=== PATIENT | male | born 1955 | race African-American/Black ===

== ENCOUNTER → 2016-07-23 | Outpatient (CLI) | payer MEDICARE, OTHER ==
[2016-07-23 09:53] LABS: HEMATOCRIT 46.3 % (37.9-51.0); HEMOGLOBIN 15.9 g/dL (13.5-17.0); HGB HCT DIFFERENCE 1.4; MEAN CORPUSCULAR HEMOGLOBIN 33.5 pg (27.0-33.4); MEAN CORPUSCULAR HGB CONC 34.4 g/dL (32.0-36.0); MEAN CORPUSCULAR VOLUME 98 fl (80-97); RED BLOOD COUNT 4.74 10^6/uL (4.35-5.55); RED CELL DISTRIBUTION WIDTH 13.4 % (11.5-14.0); WHITE BLOOD COUNT 6.8 10^3/uL (4.0-10.5)
[2016-07-23 10:05] LABS: ALANINE AMINOTRANSFERASE 52 U/L (21-72); ALBUMIN 4.5 g/dL (3.5-5.0); ALKALINE PHOSPHATASE 47 U/L (38-126); ANION GAP 14 (5-19); ASPARTATE AMINO TRANSFERASE 30 U/L (17-59); BILIRUBIN,TOTAL 0.4 mg/dL (0.2-1.3); BLOOD UREA NITROGEN 17 mg/dL (7-20); CALCIUM 10.2 mg/dL (8.4-10.2); CARBON DIOXIDE 31 mmol/L (22-30); CHLORIDE 99 mmol/L (98-107); CHOLESTEROL 196.09 mg/dL (0-200); CREATININE RESULT 0.99 mg/dL (0.52-1.25); Direct HDL 40 mg/dL (>40); GLUCOSE 101 mg/dL (75-110); POTASSIUM 4.4 mmol/L (3.6-5.0); SODIUM 143.9 mmol/L (137-145); TOTAL PROTEIN 7.7 g/dL (6.3-8.2); TRIGLYCERIDES 201 mg/dL (<150); URIC ACID 8.5 mg/dL (3.5-8.5)
[2016-07-23 10:18] LABS: DIRECT LDL 128 mg/dL (<100)
[2016-07-23 10:21] LABS: VLDL CHOLESTEROL 40.2 mg/dL (10-31)
[2016-07-23 10:30] LABS: BASOPHILS % (MANUAL) 0 % (0-2); EOSINOPHILS % (MANUAL) 4 % (0-6); LYMPHOCYTES % (MANUAL) 43 % (13-45); TOTAL CELLS COUNTED 100
[2016-07-23 10:31] LABS: TOXIC GRANULATION SLIGHT
[2016-07-23 10:32] LABS: RBC MORPHOLOGY COMMENT NORMO-CYTIC/CHROMIC
== END ==
LOC: OD 08:24
PROVIDERS: ATTEND Family Medicine
DX: E78.5 Hyperlipidemia, unspecified (principal); Z79.899 Other long term (current) drug therapy; R73.9 Hyperglycemia, unspecified; M10.9 Gout, unspecified
CPT/HCPCS: 36415; 80048; 80061; 80076; 83036; 84550; 85025

== ENCOUNTER → 2016-10-21 | Outpatient (CLI) | payer MEDICARE, OTHER ==
[2016-10-21 11:20] LABS: ALANINE AMINOTRANSFERASE 45 U/L (21-72); ALBUMIN 4.8 g/dL (3.5-5.0); ALKALINE PHOSPHATASE 49 U/L (38-126); ASPARTATE AMINO TRANSFERASE 30 U/L (17-59); BILIRUBIN,DIRECT 0.3 mg/dL (0.0-0.4); BILIRUBIN,TOTAL 0.6 mg/dL (0.2-1.3); CHOLESTEROL 196.15 mg/dL (0-200); Direct HDL 45 mg/dL (>40); TOTAL PROTEIN 7.9 g/dL (6.3-8.2); TRIGLYCERIDES 228 mg/dL (<150)
[2016-10-21 11:31] LABS: DIRECT LDL 110 mg/dL (<100)
[2016-10-21 11:34] LABS: VLDL CHOLESTEROL 45.6 mg/dL (10-31)
== END ==
LOC: OD 09:27
PROVIDERS: ATTEND Family Medicine
DX: E78.5 Hyperlipidemia, unspecified (principal)
CPT/HCPCS: 36415; 80061; 80076

== ENCOUNTER → 2017-01-22 | Outpatient (CLI) | payer MEDICARE, OTHER ==
[2017-01-22 09:27] LABS: HEMATOCRIT 46.6 % (37.9-51.0); HEMOGLOBIN 15.2 g/dL (13.5-17.0); RED BLOOD COUNT 4.66 10^6/uL (4.35-5.55); WHITE BLOOD COUNT 6.4 10^3/uL (4.0-10.5)
[2017-01-22 09:28] LABS: MEAN CORPUSCULAR HEMOGLOBIN 32.7 pg (27.0-33.4); MEAN CORPUSCULAR HGB CONC 32.7 g/dL (32.0-36.0); MEAN CORPUSCULAR VOLUME 100 fl (80-97); RED CELL DISTRIBUTION WIDTH 13.1 % (11.5-14.0)
[2017-01-22 09:42] LABS: BASOPHILS % (MANUAL) 0 % (0-2); EOSINOPHILS % (MANUAL) 3 % (0-6); LYMPHOCYTES % (MANUAL) 35 % (13-45); PLATELET CLUMPS PRESENT; TOTAL CELLS COUNTED 100
[2017-01-22 09:43] LABS: ALANINE AMINOTRANSFERASE 42 U/L (21-72); ALBUMIN 4.8 g/dL (3.5-5.0); ALKALINE PHOSPHATASE 49 U/L (38-126); ANION GAP 12 (5-19); ASPARTATE AMINO TRANSFERASE 25 U/L (17-59); BILIRUBIN,DIRECT 0.4 mg/dL (0.0-0.4); BILIRUBIN,TOTAL 0.6 mg/dL (0.2-1.3); BLOOD UREA NITROGEN 13 mg/dL (7-20); CALCIUM 10.1 mg/dL (8.4-10.2); CARBON DIOXIDE 30 mmol/L (22-30); CHLORIDE 100 mmol/L (98-107); CHOLESTEROL 165.45 mg/dL (0-200); CREATININE RESULT 0.94 mg/dL (0.52-1.25); Direct HDL 44 mg/dL (>40); GLUCOSE 108 mg/dL (75-110); POTASSIUM 4.5 mmol/L (3.6-5.0); SODIUM 142.1 mmol/L (137-145); TOTAL PROTEIN 8.3 g/dL (6.3-8.2); TRIGLYCERIDES 156 mg/dL (<150)
[2017-01-22 09:44] LABS: POLYCHROMASIA SLIGHT
[2017-01-22 09:45] LABS: TARGET CELLS SLIGHT
[2017-01-22 09:55] LABS: DIRECT LDL 101 mg/dL (<100)
[2017-01-22 10:15] LABS: VLDL CHOLESTEROL 31.2 mg/dL (10-31)
== END ==
LOC: OD 08:05
PROVIDERS: ATTEND Family Medicine
DX: E78.5 Hyperlipidemia, unspecified (principal); Z79.899 Other long term (current) drug therapy; N40.1 Benign prostatic hyperplasia with lower urinary tract symptoms; R73.9 Hyperglycemia, unspecified
CPT/HCPCS: 36415; 80048; 80061; 80076; 83036; 84153; 85025

== ENCOUNTER → 2017-09-30 | Outpatient (CLI) | payer MEDICARE, OTHER ==
[2017-09-30 09:13] LABS: ABSOLUTE BASOPHILS # (AUTO) 0.1 10^3/uL (0.0-0.2); ABSOLUTE EOSINOPHILS # (AUTO) 0.2 10^3/uL (0.0-0.6); ABSOLUTE LYMPHOCYTES (AUTO) 4.1 10^3/uL (0.5-4.7); ABSOLUTE MONOCYTES (AUTO) 0.5 10^3/uL (0.1-1.4); ABSOLUTE NEUT (AUTO) 2.3 10^3/uL (1.7-8.2); BASOPHILS % (AUTO) 1.1 % (0-2); EOSINOPHILS % (AUTO) 3.5 % (0-6); HEMATOCRIT 45.9 % (37.9-51.0); HEMOGLOBIN 15.5 g/dL (13.5-17.0); LYMPHOCYTES % (AUTO) 56.9 % (13-45); MEAN CORPUSCULAR HEMOGLOBIN 32.8 pg (27.0-33.4); MEAN CORPUSCULAR HGB CONC 33.8 g/dL (32.0-36.0); MEAN CORPUSCULAR VOLUME 97 fl (80-97); MONOCYTES % (AUTO) 6.8 % (3-13); PLATELET COUNT 224 10^3/uL (150-450); RED BLOOD COUNT 4.73 10^6/uL (4.35-5.55); RED CELL DISTRIBUTION WIDTH 13.5 % (11.5-14.0); SEGMENTED NEUTROPHILS % (AUTO) 31.7 % (42-78); TOTAL CELLS COUNTED % (AUTO) 100 %; WHITE BLOOD COUNT 7.2 10^3/uL (4.0-10.5)
[2017-09-30 09:33] LABS: ALANINE AMINOTRANSFERASE 45 U/L (21-72); ALBUMIN 4.7 g/dL (3.5-5.0); ALKALINE PHOSPHATASE 44 U/L (38-126); ANION GAP 11 (5-19); ASPARTATE AMINO TRANSFERASE 25 U/L (17-59); BILIRUBIN,DIRECT 0.4 mg/dL (0.0-0.4); BILIRUBIN,TOTAL 0.6 mg/dL (0.2-1.3); BLOOD UREA NITROGEN 13 mg/dL (7-20); CALCIUM 10.4 mg/dL (8.4-10.2); CARBON DIOXIDE 31 mmol/L (22-30); CHLORIDE 103 mmol/L (98-107); CHOLESTEROL 215.42 mg/dL (0-200); GLUCOSE 97 mg/dL (75-110); POTASSIUM 4.5 mmol/L (3.6-5.0); SODIUM 145.4 mmol/L (137-145); TOTAL PROTEIN 7.9 g/dL (6.3-8.2); TRIGLYCERIDES 240 mg/dL (<150); URIC ACID 7.7 mg/dL (3.5-8.5)
[2017-09-30 09:44] LABS: DIRECT LDL 147 mg/dL (<100)
== END ==
LOC: OD 08:08
PROVIDERS: ATTEND Family Medicine
DX: E78.5 Hyperlipidemia, unspecified (principal); R73.9 Hyperglycemia, unspecified; M10.9 Gout, unspecified; Z79.899 Other long term (current) drug therapy
CPT/HCPCS: 36415; 80053; 80061; 83036; 84443; 84550; 85025

== ENCOUNTER → 2017-10-07 | Outpatient (CLI) | payer MEDICARE, OTHER ==
--- NOTE | 2017-10-07 10:48 | RADIOLOGY REPORT (SQ) ---
EXAM DESCRIPTION: CAROTID DOPPLER COMPLETED DATE/TIME: 10/07/2017 9:38 am REASON FOR STUDY: AMAUROSIS FUGAX G45.3 AMAUROSIS FUGAX I73.9 PERIPHERAL VASCULAR DISEASE, UNSPECI FIED COMPARISON: None. TECHNIQUE: Grayscale ultrasound, Doppler velocity and spectra, and color Doppler images acquired of the extra-cranial carotid and vertebral arteries. Images stored on PACS. LIMITATIONS: None. FINDINGS: RIGHT CAROTID CCA Velocities: Within normal limits. ICA Velocities Peak systolic 0.66 m/s. End diastolic 0.32 m/s. Proximal ICA/CCA peak systolic ratio 1.7. Spectra normal. No significant plaque. LEFT CAROTID CCA Velocities: Within normal limits. ICA Velocities Peak systolic 0.53 m/s. End diastolic 0.18 m/s. Proximal ICA/CCA peak systolic ratio 1.0. Spectra normal. No significant plaque. VERTEBRAL ARTERIES: Antegrade flow. Normal waveforms. SUBCLAVIAN ARTERIES: Not evaluated OTHER: No other significant finding. IMPRESSION: NO HEMODYNAMICALLY SIGNIFICANT STENOSIS. COMMENT: Quality ID #[id number]: Velocity criteria are extrapolated from the diameter data as defined by t he Society of Radiologists in Ultrasound Consensus Conference. Radiology 2003: 229; 340-346. TECHNICAL DOCUMENTATION: JOB ID: [id number] [employer]- All Rights Reserved Reading location - IP/workstation name: [email or web address]
--- NOTE | 2017-10-08 08:04 | XCELERA REPORT ---
[address] [address] Lower Extremity Arterial Evaluation Name: LUANNE SALGADO Age: 61 yrs Gender: Male : 1955 Patient Status: Outpatient Patient Location: Study Date: 10/07/2017 08:36 AM Procedure: A color flow and duplex scan of the lower extremity arteries was performed bilaterally with velocity and waveform anaylsis. Ankle brachial indicies performed. Reason For Study: PVD Ordering Physician: GRAY JORDAN Performed By: Alexandra Davis Measurements and Calculations Right Left DIAL EQUIPMENT ENGINEER PSV 140.6 145.4 cm/sec Prox PFA PSV -143.7 -143.0 cm/sec Prox SFA PSV -73.8 -101.4 cm/sec Mid SFA PSV -54.2 -105.6 cm/sec Dist SFA PSV -489.0 -178.1 cm/sec Prox Pop A PSV 81.0 123.2 cm/sec Dist JOSE PSV 61.4 82.0 cm/sec Dist DESIGN EDITOR PSV 86.4 118.8 cm/sec Richard Pedis PSV -64.3 -63.8 cm/sec Right Side Arterial Evaluation Normal velocity and triphasic waveforms noted in the Common Femoral artery. Biphasic in the Deep Femoral. Elevated velocity in the Femoral, biphasic with close to normal velocities in to the infrageniculate vessels. 75 % stenosis, in the Femoral artery. Ankle Brachial index 1.00. Left Side Arterial Evaluation Normal velocity and triphasic waveforms noted from the Common Femoral artery to the infrageniculate vessels. Biphasic signal in the Anterior Tibia artery. 0-19 % stenosis. In the Dorsalis Pedis artery. Ankle Brachial index is 1.14 in PT, 1.03 in DP. Interpretation Summary Moderate hemodynamically significant lesions in the right lower extremity only, on duplex imaging, at rest. Mild hemodynamically significant lesions in the left lower extremity only, on duplex imaging, at rest. : GRAY JORDAN > Brooks Salgado
== END ==
LOC: SP 07:36
PROVIDERS: ATTEND Family Medicine
DX: G45.3 Amaurosis fugax (principal); I73.9 Peripheral vascular disease, unspecified
CPT/HCPCS: 93880; 93922; 93925

== ENCOUNTER → 2017-12-30 | Outpatient (CLI) | payer MEDICARE, OTHER ==
[2017-12-30 08:57] LABS: ALANINE AMINOTRANSFERASE 42 U/L (21-72); ALBUMIN 4.7 g/dL (3.5-5.0); ALKALINE PHOSPHATASE 52 U/L (38-126); ANION GAP 14 (5-19); ASPARTATE AMINO TRANSFERASE 31 U/L (17-59); BILIRUBIN,DIRECT 0.4 mg/dL (0.0-0.4); BILIRUBIN,TOTAL 0.5 mg/dL (0.2-1.3); BLOOD UREA NITROGEN 13 mg/dL (7-20); CALCIUM 10.4 mg/dL (8.4-10.2); CARBON DIOXIDE 31 mmol/L (22-30); CHLORIDE 105 mmol/L (98-107); CHOLESTEROL 112.47 mg/dL (0-200); CREATINE KINASE 296 U/L (55-170); GLUCOSE 105 mg/dL (75-110); POTASSIUM 4.8 mmol/L (3.6-5.0); SODIUM 150.4 mmol/L (137-145); TOTAL PROTEIN 7.9 g/dL (6.3-8.2); TRIGLYCERIDES 109 mg/dL (<150)
[2017-12-30 09:08] LABS: DIRECT LDL 56 mg/dL (<100)
== END ==
LOC: OD 07:34
PROVIDERS: ATTEND Family Medicine
DX: E78.5 Hyperlipidemia, unspecified (principal); R73.9 Hyperglycemia, unspecified
CPT/HCPCS: 36415; 80048; 80061; 80076; 82550; 83036

== ENCOUNTER → 2018-01-26 | Outpatient (CLI) | payer MEDICARE, OTHER ==
[2018-01-26 10:22] LABS: URIC ACID 7.7 mg/dL (3.5-8.5)
== END ==
LOC: OD 08:57
PROVIDERS: ATTEND Family Medicine
DX: M10.9 Gout, unspecified (principal); Z12.5 Encounter for screening for malignant neoplasm of prostate; R79.89 Other specified abnormal findings of blood chemistry
CPT/HCPCS: 36415; 82550; 84550; G0103

== ENCOUNTER → 2018-03-02 | Outpatient (CLI) | payer MEDICARE, OTHER ==
[2018-03-02 09:07] LABS: ANION GAP 14 (5-19); BLOOD UREA NITROGEN 10 mg/dL (7-20); CALCIUM 9.9 mg/dL (8.4-10.2); CARBON DIOXIDE 28 mmol/L (22-30); CHLORIDE 105 mmol/L (98-107); CREATINE KINASE 360 U/L (55-170); GLUCOSE 113 mg/dL (75-110); POTASSIUM 4.5 mmol/L (3.6-5.0); SODIUM 146.8 mmol/L (137-145)
== END ==
LOC: OD 07:30
PROVIDERS: ATTEND Family Medicine
DX: R79.89 Other specified abnormal findings of blood chemistry (principal)
CPT/HCPCS: 36415; 80048; 82550; 85652

== ENCOUNTER 2018-04-23 08:15 | Emergency (ER) | payer MEDICARE, OTHER ==
[2018-04-23] MEDS ORDERED: METHYLPREDNISOLONE ACETATE INJ 80 MG/1 ML VIAL IM ONE (08:34)
[2018-04-23] MEDS ORDERED: KETOROLAC TROMETHAMINE 60 MG/2 ML SDV IM ONE (08:34)
[2018-04-23] MEDS ORDERED: BUPIVACAINE HCL 0.75% INJ/PF (7.5 MG/1 ML) 10 ML SDV INJ ONE (08:34)
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
[2018-04-23 09:33] LABS: APPEARANCE,URINE SLIGHTLY-CLOUDY; BILIRUBIN,URINE NEGATIVE (NEGATIVE); GLUCOSE, URINE NEGATIVE (NEGATIVE); KETONES,URINE TRACE mg/dL (NEGATIVE); LEUKOCYTE ESTERASE,URINE NEGATIVE (NEGATIVE); NITRITE,URINE NEGATIVE (NEGATIVE); PROTEIN,URINE 100 mg/dL (NEGATIVE); URINE SPECIFIC GRAVITY 1.021
[2018-04-23 09:35] LABS: COLOR,URINE YELLOW
--- NOTE | 2018-04-23 09:52 | RADIOLOGY REPORT (SQ) ---
EXAM DESCRIPTION: L SPINE WHOLE COMPLETED DATE/TIME: 04/23/2018 9:04 am REASON FOR STUDY: Back pain COMPARISON: None. NUMBER OF VIEWS: Five views including obliques. TECHNIQUE: AP, lateral, oblique, and sacral radiographic images acquired of the lumbar spine. LIMITATIONS: None. FINDINGS: There are 5 non rib-bearing lumbar type vertebra. Marginal osteophyte formation is noted at multiple levels consistent with lumbar spondylosis. Degenerative disc disease is noted at L4-S1. Degenerative sclerosis of the apophyseal joint seen. No spondylolysis or spondylolisthesis. Calcif ications overlying lower pole left kidney could represent renal calculi. There is degenerative vicente e and ankylosis noted at the left SI joint. IMPRESSION: Multilevel lumbar spondylosis with degenerative disc disease noted at L4-S1. Degenerati ve ankylosis left SI joint. Left renal calculi. TECHNICAL DOCUMENTATION: JOB ID: [id number] 2010 [employer]- All Rights Reserved Reading location - IP/workstation name: [email or web address]
[2018-04-23 10:20] VITALS: BP 137/90
== END 2018-04-23 10:20 | disposition home or self-care (01) ==
LOC: ER 08:15
DX: M46.1 Sacroiliitis, not elsewhere classified (principal); M79.10 Myalgia, unspecified site; M60.9 Myositis, unspecified; R10.9 Unspecified abdominal pain
CPT/HCPCS: 99284; 81001; 72110; 20552; J3490; J1885; J1040

== ENCOUNTER → 2018-04-30 | Outpatient (CLI) | payer MEDICARE, OTHER ==
[2018-04-30 10:08] LABS: ALANINE AMINOTRANSFERASE 41 U/L (21-72); ALBUMIN 4.7 g/dL (3.5-5.0); ALKALINE PHOSPHATASE 47 U/L (38-126); ASPARTATE AMINO TRANSFERASE 31 U/L (17-59); BILIRUBIN,DIRECT 0.2 mg/dL (0.0-0.4); BILIRUBIN,TOTAL 0.7 mg/dL (0.2-1.3); CHOLESTEROL 164.65 mg/dL (0-200); CREATINE KINASE 724 U/L (55-170); TOTAL PROTEIN 7.5 g/dL (6.3-8.2); TRIGLYCERIDES 106 mg/dL (<150)
[2018-04-30 10:19] LABS: DIRECT LDL 104 mg/dL (<100)
== END ==
LOC: OD 08:46
PROVIDERS: ATTEND Family Medicine
DX: E78.5 Hyperlipidemia, unspecified (principal); R79.89 Other specified abnormal findings of blood chemistry
CPT/HCPCS: 36415; 80061; 80076; 82550

== ENCOUNTER → 2018-09-29 | Outpatient (CLI) | payer MEDICARE, OTHER ==
[2018-09-29 08:38] LABS: ABSOLUTE EOSINOPHILS # (AUTO) 0.3 10^3/uL (0.0-0.6); ABSOLUTE LYMPHOCYTES (AUTO) 2.5 10^3/uL (0.5-4.7); ABSOLUTE MONOCYTES (AUTO) 0.6 10^3/uL (0.1-1.4); ABSOLUTE NEUT (AUTO) 2.4 10^3/uL (1.7-8.2); BASOPHILS % (AUTO) 0.5 % (0-2); EOSINOPHILS % (AUTO) 4.8 % (0-6); HEMOGLOBIN 15.5 g/dL (13.5-17.0); LYMPHOCYTES % (AUTO) 43.4 % (13-45); MEAN CORPUSCULAR HEMOGLOBIN 34.3 pg (27.0-33.4); MEAN CORPUSCULAR HGB CONC 34.4 g/dL (32.0-36.0); MEAN CORPUSCULAR VOLUME 100 fl (80-97); MONOCYTES % (AUTO) 9.6 % (3-13); PLATELET COUNT 222 10^3/uL (150-450); RED BLOOD COUNT 4.52 10^6/uL (4.35-5.55); RED CELL DISTRIBUTION WIDTH 13.5 % (11.5-14.0); SEGMENTED NEUTROPHILS % (AUTO) 41.7 % (42-78); TOTAL CELLS COUNTED % (AUTO) 100 %; WHITE BLOOD COUNT 5.8 10^3/uL (4.0-10.5)
[2018-09-29 09:08] LABS: ALANINE AMINOTRANSFERASE 30 U/L (21-72); ALBUMIN 4.7 g/dL (3.5-5.0); ALKALINE PHOSPHATASE 61 U/L (38-126); ANION GAP 8 (5-19); ASPARTATE AMINO TRANSFERASE 22 U/L (17-59); BILIRUBIN,DIRECT 0.2 mg/dL (0.0-0.4); BILIRUBIN,TOTAL 0.4 mg/dL (0.2-1.3); BLOOD UREA NITROGEN 12 mg/dL (7-20); CALCIUM 10.2 mg/dL (8.4-10.2); CARBON DIOXIDE 31 mmol/L (22-30); CHLORIDE 103 mmol/L (98-107); CHOLESTEROL 211.64 mg/dL (0-200); CREATINE KINASE 320 U/L (55-170); GLUCOSE 121 mg/dL (75-110); POTASSIUM 4.7 mmol/L (3.6-5.0); SODIUM 141.8 mmol/L (137-145); TOTAL PROTEIN 7.6 g/dL (6.3-8.2); TRIGLYCERIDES 155 mg/dL (<150); URIC ACID 7.3 mg/dL (3.5-8.5)
[2018-09-29 09:19] LABS: DIRECT LDL 142 mg/dL (<100)
== END ==
LOC: OD 07:22
PROVIDERS: ATTEND Family Medicine
DX: K21.0 Gastro-esophageal reflux disease with esophagitis (principal); R73.9 Hyperglycemia, unspecified; M10.9 Gout, unspecified; I10 Essential (primary) hypertension; E78.5 Hyperlipidemia, unspecified
CPT/HCPCS: 36415; 80053; 80061; 82550; 83036; 84443; 84550; 85025

== ENCOUNTER → 2019-01-25 | Outpatient (CLI) | payer MEDICARE, OTHER ==
[2019-01-25 08:11] LABS: ABSOLUTE EOSINOPHILS # (AUTO) 0.2 10^3/uL (0.0-0.6); ABSOLUTE LYMPHOCYTES (AUTO) 2.5 10^3/uL (0.5-4.7); ABSOLUTE MONOCYTES (AUTO) 0.4 10^3/uL (0.1-1.4); ABSOLUTE NEUT (AUTO) 1.8 10^3/uL (1.7-8.2); BASOPHILS % (AUTO) 0.7 % (0-2); EOSINOPHILS % (AUTO) 4.8 % (0-6); HEMATOCRIT 45.4 % (37.9-51.0); HEMOGLOBIN 15.2 g/dL (13.5-17.0); LYMPHOCYTES % (AUTO) 50.4 % (13-45); MEAN CORPUSCULAR HEMOGLOBIN 33.3 pg (27.0-33.4); MEAN CORPUSCULAR HGB CONC 33.5 g/dL (32.0-36.0); MEAN CORPUSCULAR VOLUME 99 fl (80-97); MONOCYTES % (AUTO) 7.5 % (3-13); PLATELET COUNT 185 10^3/uL (150-450); RED BLOOD COUNT 4.57 10^6/uL (4.35-5.55); RED CELL DISTRIBUTION WIDTH 13.4 % (11.5-14.0); SEGMENTED NEUTROPHILS % (AUTO) 36.6 % (42-78); TOTAL CELLS COUNTED % (AUTO) 100 %; WHITE BLOOD COUNT 4.9 10^3/uL (4.0-10.5)
[2019-01-25 08:39] LABS: ALANINE AMINOTRANSFERASE 25 U/L (21-72); ALBUMIN 4.6 g/dL (3.5-5.0); ALKALINE PHOSPHATASE 55 U/L (38-126); ANION GAP 9 (5-19); ASPARTATE AMINO TRANSFERASE 23 U/L (17-59); BILIRUBIN,DIRECT 0.2 mg/dL (0.0-0.4); BILIRUBIN,TOTAL 0.4 mg/dL (0.2-1.3); BLOOD UREA NITROGEN 16 mg/dL (7-20); CALCIUM 10.2 mg/dL (8.4-10.2); CARBON DIOXIDE 30 mmol/L (22-30); CHLORIDE 105 mmol/L (98-107); CHOLESTEROL 224.19 mg/dL (0-200); CREATINE KINASE 378 U/L (55-170); GLUCOSE 134 mg/dL (75-110); POTASSIUM 4.7 mmol/L (3.6-5.0); SODIUM 143.8 mmol/L (137-145); TOTAL PROTEIN 7.6 g/dL (6.3-8.2); TRIGLYCERIDES 159 mg/dL (<150); URIC ACID 5.1 mg/dL (3.5-8.5)
[2019-01-25 08:50] LABS: DIRECT LDL 153 mg/dL (<100); VLDL CHOLESTEROL 31.8 mg/dL (10-31)
== END ==
LOC: OD 07:24
PROVIDERS: ATTEND Family Medicine
DX: N40.1 Benign prostatic hyperplasia with lower urinary tract symptoms (principal); M10.9 Gout, unspecified; E78.5 Hyperlipidemia, unspecified
CPT/HCPCS: 36415; 80053; 80061; 82550; 84153; 84550; 85025

== ENCOUNTER → 2019-05-04 | Outpatient (CLI) | payer MEDICARE, OTHER ==
[2019-05-04 08:56] LABS: ANION GAP 8 (5-19); BLOOD UREA NITROGEN 17 mg/dL (7-20); CALCIUM 10.1 mg/dL (8.4-10.2); CARBON DIOXIDE 31 mmol/L (22-30); CHLORIDE 103 mmol/L (98-107); CHOLESTEROL 221.71 mg/dL (0-200); CREATINE KINASE 360 U/L (55-170); GLUCOSE 131 mg/dL (75-110); POTASSIUM 4.7 mmol/L (3.6-5.0); TRIGLYCERIDES 304 mg/dL (<150)
[2019-05-04 09:09] LABS: DIRECT LDL 143 mg/dL (<100)
[2019-05-04 09:15] LABS: VLDL CHOLESTEROL 60.8 mg/dL (10-31)
== END ==
LOC: OD 07:04
PROVIDERS: ATTEND Family Medicine
DX: G72.0 Drug-induced myopathy (principal); R73.9 Hyperglycemia, unspecified; E78.5 Hyperlipidemia, unspecified
CPT/HCPCS: 36415; 80048; 80061; 82550; 83036

== ENCOUNTER → 2019-07-20 | Outpatient (CLI) | payer OTHER ==
--- NOTE | 2019-07-22 15:59 | RADIOLOGY REPORT (SQ) ---
EXAM DESCRIPTION: CT LUNG CANCER SCREENING COMPLETED DATE/TIME: 07/22/2019 3:46 pm REASON FOR STUDY: Z87.891 PERSONAL HISTORY OF NICOTINE DEPENDENCE Z87.891 PERSONAL HISTORY OF NICOT INE DEPENDENCE Has the patient had a Chest CT scan within the past year? N Was the patient offered tobacco cessation counseling? Y Was the patient engaged in shared decision making for this test? Y Does the patient have signs or symptoms of Lung Cancer? N Is the patient a smoker? Y How many pack years? 45 How many years since quitting smoking? 0 Patients age: 63 COMPARISON: None. TECHNIQUE: Low Dose CT scan performed of the chest without intravenous contrast for purposes of scre ening for lung cancer. Images reviewed with lung, soft tissue and bone windows. Reconstructed coron al and sagittal MPR images reviewed. All images stored on PACS. All CT scanners at this facility use dose modulation, iterative reconstruction, and/or weight based d osing when appropriate to reduce radiation dose to as low as reasonably achievable (ALARA). [facility]: Dose Right [facility]: CareDose [facility]: Dose Right [facility]: Teradose 4D [facility]: Smart MAINtag RADIATION DOSE: CT Rad equipment meets quality standard of care and radiation dose reduction techniq ues were employed. CTDIvol: NaN mGy. DLP: 0 mGy-cm. mGy. . LIMITATIONS: Artifact from body habitus and low-dose technique. FINDINGS: LUNGS AND PLEURA: No masses or nodules. No pleural effusions or calcifications. No pne umothorax. HILAR AND MEDIASTINAL STRUCTURES: No identified masses. No abnormal nodes. HEART AND VASCULAR STRUCTURES: No aortic aneurysm. No pericardial effusion. No cardiac devices. CORONARY ARTERY CALCIFICATIONS: Mild to moderate calcifications. UPPER ABDOMEN, THYROID, BONES, OTHER SOFT TISSUES: No significant findings. IMPRESSION: NEGATIVE LUNG CANCER SCREENING. OTHER FINDINGS ABOVE. LUNGRADS: LUNGRADS: 1 NEGATIVE. NO NODULES, OR DEFINITELY BENIGN NODULES MODIFIER: NONE RECOMMENDATION: Continue annual screening with LDCT in 12 months. COMMENT: CRITERIA: No lung nodules. Nodules with specific calcifications: Complete, central, popcorn, concentric rings and fat containin g nodules. TECHNICAL DOCUMENTATION: JOB ID: [id number] Quality ID # [id number]: Final reports with documentation of one or more dose reduction techniques (e.g., Au tomated exposure control, adjustment of the mA and/or kV according to patient size, use of iterative reconstruction technique) 2010 [facility] Radiology Reading location - IP/workstation name: [email or web address]
== END ==
LOC: RAD 12:09
PROVIDERS: ATTEND Nurse Practitioner
DX: Z12.2 Encounter for screening for malignant neoplasm of respiratory organs (principal); F17.210 Nicotine dependence, cigarettes, uncomplicated
CPT/HCPCS: G0297

== ENCOUNTER → 2019-07-29 | Outpatient (CLI) | payer MEDICARE, OTHER ==
[2019-07-29 08:32] LABS: ABSOLUTE BASOPHILS # (AUTO) 0.1 10^3/uL (0.0-0.2); ABSOLUTE EOSINOPHILS # (AUTO) 0.2 10^3/uL (0.0-0.6); ABSOLUTE LYMPHOCYTES (AUTO) 2.6 10^3/uL (0.5-4.7); ABSOLUTE MONOCYTES (AUTO) 0.4 10^3/uL (0.1-1.4); ABSOLUTE NEUT (AUTO) 2.5 10^3/uL (1.7-8.2); BASOPHILS % (AUTO) 0.9 % (0-2); EOSINOPHILS % (AUTO) 3.6 % (0-6); HEMATOCRIT 45.7 % (37.9-51.0); HEMOGLOBIN 15.2 g/dL (13.5-17.0); LYMPHOCYTES % (AUTO) 45.1 % (13-45); MEAN CORPUSCULAR HEMOGLOBIN 32.6 pg (27.0-33.4); MEAN CORPUSCULAR HGB CONC 33.3 g/dL (32.0-36.0); MEAN CORPUSCULAR VOLUME 98 fl (80-97); MONOCYTES % (AUTO) 7.4 % (3-13); PLATELET COUNT 167 10^3/uL (150-450); RED BLOOD COUNT 4.67 10^6/uL (4.35-5.55); RED CELL DISTRIBUTION WIDTH 13.3 % (11.5-14.0); TOTAL CELLS COUNTED % (AUTO) 100 %; WHITE BLOOD COUNT 5.8 10^3/uL (4.0-10.5)
[2019-07-29 09:02] LABS: ALBUMIN 4.7 g/dL (3.5-5.0); ALKALINE PHOSPHATASE 61 U/L (38-126); ANION GAP 7 (5-19); ASPARTATE AMINO TRANSFERASE 27 U/L (17-59); BILIRUBIN,DIRECT 0.2 mg/dL (0.0-0.4); BILIRUBIN,TOTAL 0.4 mg/dL (0.2-1.3); BLOOD UREA NITROGEN 17 mg/dL (7-20); CALCIUM 10.1 mg/dL (8.4-10.2); CARBON DIOXIDE 34 mmol/L (22-30); CHLORIDE 101 mmol/L (98-107); CHOLESTEROL 186.91 mg/dL (0-200); CREATINE KINASE 392 U/L (55-170); GLUCOSE 149 mg/dL (75-110); POTASSIUM 4.8 mmol/L (3.6-5.0); TRIGLYCERIDES 167 mg/dL (<150); URIC ACID 7.2 mg/dL (3.5-8.5)
[2019-07-29 09:14] LABS: DIRECT LDL 129 mg/dL (<100)
[2019-07-29 09:15] LABS: VLDL CHOLESTEROL 33.4 mg/dL (10-31)
== END ==
LOC: OD 07:05
PROVIDERS: ATTEND Family Medicine
DX: G72.0 Drug-induced myopathy (principal); K21.0 Gastro-esophageal reflux disease with esophagitis; M10.9 Gout, unspecified; E78.5 Hyperlipidemia, unspecified; R73.9 Hyperglycemia, unspecified
CPT/HCPCS: 36415; 80053; 80061; 82550; 83036; 84443; 84550; 85025

== ENCOUNTER → 2019-12-16 | Outpatient (CLI) | payer MEDICARE, OTHER ==
[2019-12-16 08:24] LABS: CHOLESTEROL 113.59 mg/dL (0-200); TRIGLYCERIDES 131 mg/dL (<150)
[2019-12-16 08:34] LABS: DIRECT LDL 56 mg/dL (<100)
== END ==
LOC: OD 07:24
PROVIDERS: ATTEND Family Medicine
DX: E78.5 Hyperlipidemia, unspecified (principal)
CPT/HCPCS: 36415; 80061

== ENCOUNTER → 2020-04-26 | Outpatient (CLI) | payer MEDICARE, OTHER ==
[2020-04-26 08:15] LABS: ABSOLUTE EOSINOPHILS # (AUTO) 0.2 10^3/uL (0.0-0.6); ABSOLUTE LYMPHOCYTES (AUTO) 2.3 10^3/uL (0.5-4.7); ABSOLUTE MONOCYTES (AUTO) 0.4 10^3/uL (0.1-1.4); ABSOLUTE NEUT (AUTO) 2.6 10^3/uL (1.7-8.2); BASOPHILS % (AUTO) 0.6 % (0-2); EOSINOPHILS % (AUTO) 3.4 % (0-6); HEMATOCRIT 45.1 % (37.9-51.0); HEMOGLOBIN 15.7 g/dL (13.5-17.0); LYMPHOCYTES % (AUTO) 41.7 % (13-45); MEAN CORPUSCULAR HEMOGLOBIN 34.5 pg (27.0-33.4); MEAN CORPUSCULAR HGB CONC 34.8 g/dL (32.0-36.0); MEAN CORPUSCULAR VOLUME 99 fl (80-97); MONOCYTES % (AUTO) 7.6 % (3-13); PLATELET COUNT 198 10^3/uL (150-450); RED BLOOD COUNT 4.56 10^6/uL (4.35-5.55); RED CELL DISTRIBUTION WIDTH 13.6 % (11.5-14.0); SEGMENTED NEUTROPHILS % (AUTO) 46.7 % (42-78); TOTAL CELLS COUNTED % (AUTO) 100 %; WHITE BLOOD COUNT 5.6 10^3/uL (4.0-10.5)
[2020-04-26 09:13] LABS: ALBUMIN 4.8 g/dL (3.5-5.0); ALKALINE PHOSPHATASE 59 U/L (38-126); ANION GAP 9 (5-19); ASPARTATE AMINO TRANSFERASE 30 U/L (17-59); BILIRUBIN,DIRECT 0.3 mg/dL (0.0-0.4); BILIRUBIN,TOTAL 0.6 mg/dL (0.2-1.3); BLOOD UREA NITROGEN 13 mg/dL (7-20); CALCIUM 10.1 mg/dL (8.4-10.2); CARBON DIOXIDE 30 mmol/L (22-30); CHLORIDE 102 mmol/L (98-107); CHOLESTEROL 149.12 mg/dL (0-200); DIRECT LDL 74 mg/dL (<100); GLUCOSE 116 mg/dL (75-110); POTASSIUM 4.2 mmol/L (3.6-5.0); TOTAL PROTEIN 7.6 g/dL (6.3-8.2); TRIGLYCERIDES 235 mg/dL (<150)
[2020-04-27 11:38] LABS: CREATININE URINE 91.7 mg/dL (Not Estab.); MICROALBUMIN URINE 45.8 ug/mL (Not Estab.)
== END ==
LOC: OD 07:22
PROVIDERS: ATTEND Family Medicine
DX: E11.59 Type 2 diabetes mellitus with other circulatory complications (principal); E78.5 Hyperlipidemia, unspecified; Z12.5 Encounter for screening for malignant neoplasm of prostate; Z79.899 Other long term (current) drug therapy
CPT/HCPCS: 82043; 82570; 36415; 85025; 80053; 83036; 80061; G0103